=== PATIENT | female | born 1955 | race Caucasian/White ===

== ENCOUNTER → 2017-01-12 | Day surgery (SDC) | payer BC, MEDICARE | LOC: MSO 07:36 | DX: H25.11 Age-related nuclear cataract, right eye (principal); H26.9 Unspecified cataract | CPT/HCPCS: 00142; A9270-GY; J0171; J2250; J3010; V2632; V2797 ==

== ENCOUNTER → 2017-02-16 | Day surgery (SDC) | payer BC, MEDICARE | LOC: MSO 10:42 | DX: H25.12 Age-related nuclear cataract, left eye (principal) | CPT/HCPCS: 00142; A9270-GY; J0171; J2550; V2632; V2797 ==